=== PATIENT | male | born 1975 | race Caucasian/White ===

== ENCOUNTER 2022-02-12 09:18 | Emergency (ER) | payer OTHER ==
[2022-02-12 09:43] VITALS: O2SAT 100
[2022-02-12] MEDS ORDERED: Zofran 4 MG/2 ML VIAL IV ONE (09:56)
[2022-02-12] MEDS ORDERED: Sodium Chloride 0.9% 1000 ML 1,000 ML IV STA (09:56)
[2022-02-12] MEDS ORDERED: Zofran 4 MG/2 ML VIAL ONE (09:58)
[2022-02-12] MEDS ORDERED: Sodium Chloride 0.9% 1000 ML 1,000 ML ONE (09:58)
[2022-02-12 10:03] LABS: Absolute Neutrophil Ct (ANC) 4.63 x10^3/uL (1.4-6.9); Basophil (Absolute #) 0.04 x10^3/uL (0-0.4); Eosinophil % 0.4 % (0.00-5.0); Eosinophil (Absolute #) 0.03 x10^3/uL (0-0.5); Hemoglobin 14.3 g/dL (12.5-18.0); Lymphocyte (Absolute #) 2.25 x10^3/uL (1.0-4.6); Lymphocytes % 28.9 % (24.0-44.0); Mean Platelet Volume 9.6 fL (7.5-11.0); Monocyte (Absolute #) 0.81 x10^3/uL (0.0-1.3); Monocytes % 10.4 % (0.0-12.0); Neutrophil % 59.5 % (36.0-66.0); Platelet Count 272 x10^3/uL (150-450); Red Blood Count 4.47 x10^6/uL (4.1-5.6); Red Cell Distribution Width 12.3 % (11.5-14.0); White Blood Count 7.8 x10^3/uL (4.0-10.5)
[2022-02-12 10:05] LABS: Appearance CLOUDY (CLEAR); Bilirubin NEGATIVE (NEGATIVE); Dipstick done @ ? MAIN LAB; Glucose NEGATIVE (NEGATIVE); Ketones NEGATIVE (NEGATIVE); Nitrite NEGATIVE (NEGATIVE); Protein,Urine Dip NEGATIVE (Negative); RBC NEGATIVE Ery/ul (0-5); Urobilinogen 0.2 mg/dL (0-1)
[2022-02-12 10:06] LABS: Amourphous Crystal FEW /HPF (NEGATIVE); RBC 0-2 /HPF (0-2)
[2022-02-12 10:07] LABS: Urine Cultured Indicated? NO
[2022-02-12 10:16] LABS: ALBUMIN 4.4 g/dL (3.5-5.0); ALKALINE PHOSPHATASE 85 U/L (38-126); ANION GAP 12.1 MEQ/L (5-15); BLOOD UREA NITROGEN 14 mg/dL (9-20); CHLORIDE 103 mmol/L (98-107); Calcium 9.3 mg/dL (8.4-10.2); Carbon Dioxide 24 mmol/L (22-30); Creatinine 1 0.69 mg/dL (0.66-1.25); EST GLOMERULAR FILTRATION RATE > 60.0 ML/MIN; Glucose 100 mg/dL (74-106); LIPASE 205 U/L (23-300); Potassium 4.5 mmol/L (3.5-5.1); SGOT/AST 19 U/L (17-59); SGPT/ALT 28 U/L (0-50); SODIUM 135 mmol/L (137-145); Total Protein 7.4 g/dL (6.3-8.2)
--- NOTE | 2022-02-12 10:25 | ERPHSYRPT ---
- History of Present Illness Time Seen by Provider: 02/12/22 09:19 Historian: patient Exam Limitations: no limitations Patient Subjective Stated Complaint: Vomiting Triage Nursing Assessment: Patient ambulated back to ED and transferred self to bed. Patient A+O X3. Patient's skin pink, warm and dry. Patient complains of vomiting on and off for 7 days with intermittent abdominal pain. Patient states the abdominal pain feels better when in a warm shower. Patient also complains of constipation. Abdomen soft and round with BS X 4. Patient states he has also had body aches and fatigue. Physician History: 46-year-old male with history of chronic back pain presented in the ER with chief complaint of abdominal pain with off-and-on vomiting for almost 1 week. Patient reports he is recently switched back to [place] from Suboxone for back pain. In the process of switching he was having severe back pain and has been smoking marijuana more than usual to control his pain. He has been having off-and-on vomiting nonprojectile, nonbilious for 1 week with inability to hold much down. Patient started taking hydrocodone and got constipated as well and has a good bowel movement this morning. Is better. He feels weak fatigued and tired. No fever or chills reported. Timing/Duration: week(s) (1), intermittent, improved Activities at Onset: rest Quality: cramping Abdominal Pain Onset Location: generalized abdomen Pain Radiation: no radiation Severity of Pain-Max: severe Severity of Pain-Current: mild Modifying Factors: Improves With: defecating. Worsens With: vomiting Associated Symptoms: nausea, vomiting Allergies/Adverse Reactions: No Known Drug Allergies Allergy (Unverified 02/12/22 09:28) Home Medications: Hydrocodone/Acetaminophen [Hydrocodone-Acetamin 7.5-325] 1 tab PO QID 02/12/22 [History] Hx Influenza Vaccination/Date Given: No Hx Pneumococcal Vaccination/Date Given: No Immunizations Up to Date: Yes Travel Risk - International Travel Have you traveled outside of the country in past 3 weeks: No - Coronavirus Screening Are you exhibiting any of the following symptoms?: No - Vaccine Status Have you recieved a Covid-19 vaccination: Yes 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 - Vaccination Dates Date of 2cond Vaccination (if applicable): na - Review of Systems Constitutional: Fatigue, Weakness Eyes: No Symptoms Ears, Nose, & Throat: No Symptoms Respiratory: No Symptoms Cardiac: No Symptoms Abdominal/Gastrointestinal: Abdominal Pain, Nausea, Vomiting, Constipation Genitourinary Symptoms: No Symptoms Musculoskeletal: Back Pain Skin: No Symptoms Neurological: No Symptoms Endocrine: No Symptoms Hematologic/Lymphatic: No Symptoms Immunological/Allergic: No Symptoms - Past Medical History Pertinent Past Medical History: Yes Neurological History: No Pertinent History ENT History: No Pertinent History Cardiac History: No Pertinent History Respiratory History: No Pertinent History Endocrine Medical History: No Pertinent History Musculoskeletal History: Other GI Medical History: No Pertinent History History: No Pertinent History Psycho-Social History: No Pertinent History Male Reproductive Disorders: No Pertinent History Other Medical History: chronic back pain L4,5, 6 - Past Surgical History Past Surgical History: No Neuro Surgical History: No Pertinent History Cardiac: No Pertinent History Respiratory: No Pertinent History Gastrointestinal: Cholecystectomy Genitourinary: No Pertinent History Musculoskeletal: No Pertinent History Male Surgical History: No Pertinent History - Social History Smoking Status: Current every day smoker How long have you smoked: years Exposure to second hand smoke: Yes Drug Use: marijuana Patient Lives Alone: No - Nursing Vital Signs Nursing Vital Signs: Initial Vital Signs Temperature 97.8 F 02/12/22 09:35 Pulse Rate 63 02/12/22 09:35 Respiratory Rate 18 02/12/22 09:35 Blood Pressure 113/83 02/12/22 09:35 O2 Sat by Pulse Oximetry 100 02/12/22 09:35 Pain Scale Pain Intensity 5 - Physical Exam General Appearance: no apparent distress, alert Eye Exam: PERRL/EOMI Ears, Nose, Throat Exam: normal ENT inspection Neck Exam: normal inspection, full range of motion Respiratory Exam: normal breath sounds, lungs clear Cardiovascular Exam: regular rate/rhythm, normal heart sounds Gastrointestinal/Abdomen Exam: soft, normal bowel sounds, tenderness (Minimal generalized) Back Exam: normal inspection, normal range of motion Extremity Exam: normal inspection, normal range of motion Neurologic Exam: alert, oriented x 3, cooperative Skin Exam: normal color SpO2 Interpretation: normal SpO2: 100 O2 Delivery: Room Air Ordered Tests: Active Orders 24 hr Category Date Time Status IV Insertion STAT Care 02/12/22 09:56 Active NPO (ED) STAT Care 02/12/22 09:56 Active ABDOMEN AND PELVIS W/0 CONTRAS [CT] Stat Exams 02/12/22 09:56 Completed CBC W DIFF Stat Lab 02/12/22 09:00 Completed CMP Stat Lab 02/12/22 09:00 Completed LIPASE Stat Lab 02/12/22 09:00 Completed UA W/RFX CULTURE Stat Lab 02/12/22 09:57 Results Medication Summary Discontinued Medications Generic Name Dose Route Start Last Admin Trade Name Vivien PRN Reason Stop Dose Admin Sodium Chloride 1,000 mls @ 999 mls/hr 02/12/22 09:56 02/12/22 11:01 Sodium Chloride 0.9% 1000 Ml IV 02/12/22 10:56 Infused .Q1H1M STA Infusion Sodium Chloride Confirm 02/12/22 09:58 Sodium Chloride 0.9% 1000 Ml Administered 02/12/22 09:59 Dose 1,000 mls @ ud .ROUTE .STK-MED ONE Ondansetron HCl 4 mg 02/12/22 09:56 02/12/22 09:58 Ondansetron Hcl 4 Mg/2 Ml Vial IV 02/12/22 09:57 4 mg STAT ONE Administration Ondansetron HCl Confirm 02/12/22 09:58 Ondansetron Hcl 4 Mg/2 Ml Vial Administered 02/12/22 09:59 Dose 4 mg .ROUTE .STK-MED ONE Lab/Rad Data: Laboratory Result Diagrams 02/12/22 09:00 02/12/22 09:00 Laboratory Results 02/12/22 02/12/22 02/12/22 Range/Units 09:57 09:00 09:00 WBC 7.8 (4.0-10.5) x10^3/uL RBC 4.47 (4.1-5.6) x10^6/uL Hgb 14.3 (12.5-18.0) g/dL Hct 42.0 (42-50) % MCV 94.0 (78-100) fL MCH 32.0 (26-32) pg MCHC 34.0 (32-36) g/dL RDW 12.3 (11.5-14.0) % Plt Count 272 (150-450) x10^3/uL MPV 9.6 (7.5-11.0) fL Gran % 59.5 (36.0-66.0) % Immature Gran % (Auto) 0.3 (0.00-0.4) % Nucleat RBC Rel Count 0.0 (0.00-0.1) % Eos # (Auto) 0.03 (0-0.5) x10^3/uL Immature Gran # (Auto) 0.02 (0.00-0.03) x10^3u/L Absolute Lymphs (auto) 2.25 (1.0-4.6) x10^3/uL Absolute Monos (auto) 0.81 (0.0-1.3) x10^3/uL Absolute Nucleated RBC 0.00 (0.00-0.01) x10^3u/L Lymphocytes % 28.9 (24.0-44.0) % Monocytes % 10.4 (0.0-12.0) % Eosinophils % 0.4 (0.00-5.0) % Basophils % 0.5 (0.0-0.4) % Absolute Granulocytes 4.63 (1.4-6.9) x10^3/uL Basophils # 0.04 (0-0.4) x10^3/uL Sodium 135 L (137-145) mmol/L Potassium 4.5 (3.5-5.1) mmol/L Chloride 103 (98-107) mmol/L Carbon Dioxide 24 (22-30) mmol/L Anion Gap 12.1 (5-15) MEQ/L BUN 14 (9-20) mg/dL Creatinine 0.69 (0.66-1.25) mg/dL Estimated GFR > 60.0 ML/MIN Glucose 100 (74-106) mg/dL Calcium 9.3 (8.4-10.2) mg/dL Total Bilirubin 0.40 (0.2-1.3) mg/dL AST 19 (17-59) U/L ALT 28 (0-50) U/L Alkaline Phosphatase 85 (38-126) U/L Serum Total Protein 7.4 (6.3-8.2) g/dL Albumin 4.4 (3.5-5.0) g/dL Lipase 205 (23-300) U/L Urinalys Dipstick Clnc Pending Urine Color YELLOW (YELLOW) Urine Appearance CLOUDY A (CLEAR) Urine pH 7.0 (5-6) Ur Specific [place] 1.020 (1.005-1.025) POC Urine Protein Conf NEGATIVE (Negative) Urine Ketones NEGATIVE (NEGATIVE) Urine Nitrite NEGATIVE (NEGATIVE) Urine Bilirubin NEGATIVE (NEGATIVE) Urine Urobilinogen 0.2 (0-1) mg/dL Urine Leukocytes NEGATIVE (NEGATIVE) Urine WBC (Auto) NONE (0-5) /HPF Urine RBC (Auto) 0-2 (0-2) /HPF U Epithel Cells (Auto) NONE (FEW) /HPF Urine Bacteria (Auto) NONE (NEGATIVE) /HPF Urine RBC NEGATIVE (0-5) [place]/ul Amorphous Crystals FEW A (NEGATIVE) /HPF Ur Culture Indicated? NO Urine Glucose NEGATIVE (NEGATIVE) mg/dL - Progress Progress: improved Progress Note: 02/12/22 11:08 26-year-old is evaluated for abdominal pain with nausea vomiting for a week. Patient pain is improved prior to arrival with a bowel movement. Given Zofran. Patient feeling better on reevaluation. Baseline work-up for acute abdomen negative including CT abdomen pelvis without contrast. His pain could be secondary to constipation with recent restart of hydrocodone and excessive vomiting probably secondary to marijuana use causing cyclical vomiting syndrome. Recommended not using marijuana. Discussed signs symptoms of worsening needing return to ER which he seems understanding. Stable for discharge. Counseled pt/family regarding: lab results, diagnosis, need for follow-up, rad results - Departure Departure Disposition: Home Clinical Impression: Abdominal pain, Nausea & vomiting Condition: Stable Critical Care Time: No Referrals: KYLE VAN MD [Primary Care Provider] - Follow Up with PCP/3 days Instructions: Severe Abdominal Pain, Adult (DC) Additional Instructions: Continue with your current pain medication. Follow-up with primary care for reevaluation. Turn to ER for worsening. Take daily stool softener/MiraLAX.
[2022-02-12 10:49] VITALS: BP 130/78; PULSE 50
--- NOTE | 2022-02-12 10:53 | XRAY ---
Indication: Pain and vomiting 1 week. Multiple contiguous axial images obtained through the abdomen and pelvis without contrast. Comparison: None Lung bases demonstrates tiny left lower lobe calcified granuloma. No infiltrate or effusion. Heart not enlarged. Tiny distal paraesophageal calcified node. Noncontrasted stomach and bowel loops appear nonobstructed. Nonvisualization appendix. Previous cholecystectomy. No free fluid/air. Tiny splenic calcified granulomas. Remaining liver, pancreas, spleen, adrenal glands, kidneys, ureters, and bladder are unremarkable for noncontrast exam. Mild scattered aortoiliac calcifications without AAA. Osseous structures intact with minimal/mild degenerative changes throughout the spine, mild levorotoscoliosis centered at L3, and small inferior L4 Schmorl node. No ventral or inguinal hernias. Impression: 1. Mild arteriosclerotic disease, chronic bony findings, and old granulomatous disease. 2. Remaining CT abdomen/pelvis without contrast exam is negative.
== END 2022-02-12 11:39 | disposition home or self-care (01) ==
LOC: ED 09:18
DX: R10.84 Generalized abdominal pain (principal); R11.2 Nausea with vomiting, unspecified; Z72.0 Tobacco use; Z79.891 Long term (current) use of opiate analgesic
CPT/HCPCS: 36000; 36415; 74176; 80053; 81015; 83690; 85025; 96374; 99284; J2405